=== PATIENT | male | born 1965 | race Caucasian/White ===

== ENCOUNTER → 2023-10-16 07:57 | Outpatient (REF) | payer BC, SELFPAY | LOC: RCS 07:57 | PROVIDERS: ATTENDING PHYSICIAN Physician Assistant Medical; FAMILY PHYSICIAN Family Medicine | DX: I48.91 Unspecified atrial fibrillation (principal); I42.2 Other hypertrophic cardiomyopathy | CPT/HCPCS: 93306 ==

== ENCOUNTER 2024-07-16 09:46 | Day surgery (SDC) | payer BC, SELFPAY ==
--- NOTE | 2024-07-16 11:39 | ITS.CL.CARDI ---
[facility] - Cardioversion
Cardioversion
Procedure Report:
Procedure: Direct current electrical cardioversion
Pre-operative diagnosis: Persistent atrial fibrillation
Post-operative diagnosis: Persistent atrial fibrillation status post DC cardioversion to sinus rhythm
Anesthesia: MAC
Attending Physician: Arnel Meza MD
Procedure Description: The patient was brought to the electrophysiology laboratory in the fasting state. Adherence to anticoagulation regimen was confirmed. Informed consent was obtained from the patient prior to the start of the procedure.
Electrodes were placed on the patient and connected to an external defibrillator. Monitoring of blood pressure, ECG tracings, and pulse oximetry was initiated. The pads were applied to the patient in the anterior and posterior positions. The patient
was sedated by the anesthesiologist. A 200 joule biphasic synchronized shock was delivered to the patient under MAC anesthesia. Sinus rhythm was successfully restored. The patient recovered uneventfully from MAC anesthesia. There were no immediate
post-procedure complications. The patient left the lab in good condition. The attending physician was present throughout the entire procedure.
Impression: Successful direct current cardioversion with religion of sinus rhythm after one 200 joule biphasic synchronized shock.
== END 2024-07-16 12:22 | disposition home or self-care (01) ==
LOC: CATH 09:46
PROVIDERS: ATTENDING PHYSICIAN Internal Medicine Cardiovascular Disease; FAMILY PHYSICIAN Family Medicine; OTHER PHYSICIAN Internal Medicine Cardiovascular Disease
DX: I48.19 Other persistent atrial fibrillation (principal); I42.2 Other hypertrophic cardiomyopathy; Z79.01 Long term (current) use of anticoagulants
CPT/HCPCS: 92960; 93005

== ENCOUNTER → 2024-08-31 14:59 | Outpatient (REF) | payer BC, SELFPAY | LOC: DHSLP 14:59 | PROVIDERS: ATTENDING PHYSICIAN Nurse Practitioner; FAMILY PHYSICIAN Family Medicine | DX: G47.33 Obstructive sleep apnea (adult) (pediatric) (principal) | CPT/HCPCS: 95800 ==

== ENCOUNTER 2024-12-24 06:05 | Day surgery (SDC) | payer BC, SELFPAY ==
[2024-12-13 09:04] LABS: Hematocrit 45.8 % (39.0-52.0); Hemoglobin 15.9 g/dL (13.0-18.0); Mean Corp Hgb Conc. 34.7 g/dL (33.0-37.0); Mean Corpuscular Volume 91.6 fL (80.0-94.0); Nucleated Red Blood Cells % 0 % (-); Platelet Count 219 10^3/uL (130-400); Red Cell Dist. Width 12.0 % (11.5-14.5)
[2024-12-13 09:08] LABS: INR 1.02; PT 13.7 Sec (11.4-14.6)
[2024-12-13 09:44] LABS: ALT (SGPT) 18 U/L (0-50); AST (SGOT) 21 U/L (17-59); Albumin 4.6 g/dl (3.5-5.0); Alkaline Phosphatase 78 U/L (38-126); Blood Urea Nitrogen 22 mg/dl (9-20); Calcium 9.3 mg/dl (8.4-10.2); Carbon Dioxide 28 mmol/L (22-30); Chloride 104 mmol/L (98-107); Glucose 91 mg/dl (70-99); Magnesium 2.0 mg/dl (1.6-2.3); Potassium 4.1 mmol/L (3.5-5.1); Sodium 140 mmol/L (135-145); Total Protein 7.8 g/dl (6.3-8.2); eGFR > 60.00
[2024-12-13 13:10] VITALS: BMI 26.2
[2024-12-24] VITALS (21 sets, daily range): BP systolic 107–146; BP diastolic 64–83; BMI 28.1
--- NOTE | 2024-12-24 07:56 | ITS.CL.ABL ---
[facility] - Ablation
Ablation
Procedure Report:
ELECTROPHYSIOLOGIC STUDY AND POSSIBLE ABLATION
DATE: 12/24/24
Primary Care Provider: Dr Dakota Herbert
Primary front attendant: Dr Mei Hernandez
[employer]: Nikolay Campos M.D.
INDICATION:
Symptomatic Atrial Fibrillation.
Persistent.
HISTORY: See H and P.
Symptomatic AF, poorly controlled with attempted medical therapy which has included antiarrhythmic drug therapy. Therefore he underwent cryoballoon PVI July 31, 2022. In August 2022�he had recurrence of atrial fibrillation and was placed on
amiodarone.� He felt poorly in atrial fibrillation and ultimately underwent cardioversion 10/21/2022 after amiodarone loading.
He did well for period of time but eventually recurred with persistent atrial fibrillation May 2024. He required cardioversion July 16, 2024.
He is highly symptomatic with atrial fibrillation mostly exertional fatigue.
He has a history of hypertrophic obstructive cardiomyopathy with prior MRI (2022) demonstrating 18% late gadolinium enhancement as well as severely enlarged left atrium at that time.
There was discussion regarding placement of ICD to reduce risks of sudden cardiac given discovery of hypertrophic cardiomyopathy with greater than 15% (18%) late gadolinium enhancement noted on MRI.� Initially patient was agreeable to undergo
ICD implant. However he change his mind. He then was seen at [facility] by Dr. Min, for evaluation of his hypertrophic cardiomyopathy. He tells me his genetics were positive.� ICD was advised. He still has decided to avoid ICD
implantation.
HAS-BLED: 0
CHADSVASc: 0, but with AF and HOCM, he is at elevated risk of thromboembolic events and oral anticoagulation is indicated
PRESENTING RHYTHM: SR
ANTIARRHYTHMIC DRUG: Amiodarone, stopped 12/17/24
ANTICOAGULATION: Apixaban
'TIME-OUT': called and confirmed.
SEDATION/ANESTHESIA: provided via the anesthesia department using general anesthesia.
PROCEDURE:
Ultrasound Guidance with real-time visualization of needle insertion and vessel patency performed by me for femoral venous Vascular Access.
Under real-time US guidance, the needle was advanced with negative pressure into the vein. The needle was seen entering the vessel lumen with a good return of dark red flow, the syringe was removed, non-pulsatile, dark red blood low was noted and
the wire was passed without difficulty, then the needle was removed. US confirmed the wire was in the vein, not going into an artery,
Images were taken and saved for the patient's permanent record. Imaging findings typical femoral venous anatomy. Direct visualization of needle puncture into the femoral vein was observed and recorded.
A decapolar CS catheter was placed within the CS for mapping and pacing.
The intracardiac ultrasound catheter was positioned in the RA for continuous intracardiac ultrasound imaging.
Heparin bolus and infusion to target ACT at 300 -350 seconds was administered. Transseptal puncture was performed. This entailed advancing a sheath with dilator into the superior vena cava and withdrawing both (monitoring intracardiac ultrasound,
fluoroscopy and tip pressure) with the tip oriented toward the atrial septum. The fossa ovalis was engaged (indicated by sudden displacement of the sheath tip as well as tenting of the fossa seen on intracardiac ultrasound).
Transseptal puncture was performed. Left atrial catheter position was confirmed by echocardiographic imaging, pressure monitoring (LA mean pressure 14 mm Hg) and fluoroscopy. The sheath was advanced over the dilator and positioned in the left
atrium.
The Sphere 9 multipolar mapping/ablation Sphere-9 catheter was positioned through the transseptal sheath for high density mapping.
Geometry and voltage mapping was performed using the [employer] mapping system for three-dimensional electroanatomical mapping.
Catheter positioning was guided and confirmed using both I.C.E. and fluoroscopy.
High density electroanatomical three-dimensional mapping demonstrated 4 PVs: LSPV, LIPV, RSPV, RIPV.
Ablation strategy included PVI as well as mapping for extra PV contributors to atrial fibrillation which would also be targeted if present.
There is reconnection at the superior septal quadrant of the right superior pulmonary vein as well as the superior quadrant of the left superior pulmonary vein. These areas were targeted with the sphere 9 catheter for pulsed electric field energy
reisolating the pulmonary veins
After accomplishing pulmonary venous isolation, mapping identified additional areas likely to be extra PV contributors to atrial fibrillation. These areas demonstrated patchy low voltage as well as complex fractionated electrograms. These areas can
be sites for the formation of rotors which can drive and maintain atrial fibrillation. These areas are known to be significant contributors to initiation and perpetuation of atrial fibrillation.
Additional energy applications/additional ablation sets targeted extra PV contributors to atrial fibrillation.
Targets for additional PFA ablation included:
LA posterior wall targeted with pulsed electric field energy isolating the posterior wall of the left atrium
After ablation of the posterior wall, additional targets were addressed:
The ridge of tissue between the left atrial appendage and the left sided pulmonary veins (Ligament of Gabriel )
These areas were ablated using pulsed electric field energy eliminating the extra PV contributors to atrial fibrillation.
Post ablation mapping finds entrance and exit block at each of the pulmonary veins, the LA posterior wall and at the additional lines at the Ligament of Marshal rendering the sites no longer able to contribute to atrial fibrillation.
Programmed electrostimulation including burst atrial pacing as well the delivery of decremental extrastimuli down to atrial effective refractory period and no sustained arrhythmias could be induced.
I.C.E. :
Pre-Ablation Post-Ablation
LVEF: 55 % 55 %
WMA: none none
Pericardial effusion: none none
LA Pressure (mmHg) 14 13
COMPLICATIONS:
none
SUMMARY:
- Mapping and ablation to isolate the PVs resulting in electrical isolation of the pulmonary veins
- Additional AF ablation sets X 2 after PVI (LA posterior wall, ligament of Gabriel) resulting in elimination of the targeted extra PV contributors to atrial fibrillation.
- 3-D Electroanatomical Mapping
- Intracardiac Ultrasound
- Ultrasound guidance for vascular access
Post ablation, I discussed today's findings and results with the patient's , Rachel.
RECOMMENDATIONS:
- Observe in monitored bed.
- Maintain oral anticoagulation.
- Will not reinitiate amiodarone
- Office visit with Peg Martinez, SOFTWARE SECURITY ARCHITECT will be scheduled for 3 to 4 months from today.
- Continue cardiovascular care with Dr Mei Hernandez
Copy to:
Primary care provider: Dr Dakota Herbert
Primary front attendant: Dr Mei Hernandez
--- NOTE | 2024-12-24 13:01 | W.PN.UPDATE ---
Update Note
Progress Note Update
Pt seen post PFA. Right groin site without ht/bleeding, non tender. Post EKG NSR 60s, no acute changes. Resume eliquis tonight at usual time. Stop amiodarone and will not resume. Followup with Dr. Campos as scheduled. Home today if groin
site/tele remain stable.
== END 2024-12-24 14:10 | disposition home or self-care (01) ==
LOC: CATH 06:05
PROVIDERS: ATTENDING PHYSICIAN Internal Medicine Cardiovascular Disease; FAMILY PHYSICIAN Family Medicine
DX: I48.19 Other persistent atrial fibrillation (principal); I42.1 Obstructive hypertrophic cardiomyopathy; G47.33 Obstructive sleep apnea (adult) (pediatric); Z86.718 Personal history of other venous thrombosis and embolism; Z79.01 Long term (current) use of anticoagulants; R00.1 Bradycardia, unspecified; Z79.899 Other long term (current) drug therapy; Z87.01 Personal history of pneumonia (recurrent)
CPT/HCPCS: C1733; C1894; C1769; C1766; C1730; 36415; 80053; 83735; 85025; 85347; 85610; 86850; 86900; 86901; 93005; 93656; 93657